=== PATIENT | female | born 1960 | race Caucasian/White ===

== ENCOUNTER 2016-11-22 09:50 | Outpatient (CLI) | payer OTHER ==
--- OUTSIDE RECORDS SUMMARY | 2016-11-22 09:52 | XMS | Clinical Summary ---
:1960 Author Organization [facility] Address [address] [place] [address] Phone Care Team Providers Name Role Phone , Primary Care Provider Unavailable Allergies Not on File Current Medications Not on file Active Problems Not on file Social History Tobacco Use Types Packs/Day Years Used Date Never Assessed Sex Assigned at Date Recorded Not on file Last Filed Vital Signs Not on file Plan of Treatment Not on file Results Not on filefrom Last 3 Months
--- NOTE | 2016-11-22 12:09 | RAD ---
THREE VIEWS LUMBOSACRAL SPINE: HISTORY: Lumbar stenosis and acute low back pain. COMPARISON: None. FINDINGS: Lateral views of the lumbosacral spine were performed in neutral, flexion, and extension. The inter vertebral disks are narrowed and vacuum phenomenon is seen at L3-L4. Small osteophytes are seen thr oughout the lumbar spine. The vertebral bodies demonstrate normal alignment without subluxation. A lignment is unchanged with flexion and extension. IMPRESSION: Degenerative changes of the lumbar spine with unchanged alignment with bending. POS: [facility]
--- NOTE | 2016-11-22 12:51 | MRI ---
MRI OF THE LUMBAR SPINE WITHOUT CONTRAST: COMPARISON: Lumbar spine radiographs 11/22/16. HISTORY: Right-sided back pain. Lumbar stenosis. Neurogenic claudication. TECHNIQUE: Multiplanar, multisequence MR images were obtained of the lumbar spine without contrast. FINDINGS: Generalized disk desiccation is seen. There intervertebral disks and narrowed at L3-4 and L5-S1. E nd plate degenerative changes are also seen at these levels. The conus medullaris terminates normally at L1-2. The prevertebral and paraspinous soft tissues are unremarkable. T12-L1: No significant posterior bulge or protrusion. No posterior facet arthrosis. No neural for aminal or central canal stenosis. L1-2: Unremarkable. L2-3: A small disk-osteophyte complex is seen. Mild bilateral posterior facet arthrosis. No centr al canal stenosis. Mild bilateral neural foraminal stenosis. L3-4: A small disk-osteophyte complex is seen. Moderate bilateral posterior facet arthrosis. Mild central canal stenosis. Moderate left and mild right neural foraminal stenosis. L4-5: A small disk-osteophyte complex is seen. Bilateral posterior facet arthrosis. No central ca nal stenosis. Mild bilateral neural foraminal stenosis. L5-S1: A small disk-osteophyte complex is seen. Mild bilateral posterior arthrosis. No central ca nal stenosis. Moderate right neural foraminal stenosis. No left neural foraminal stenosis. POS: [facility]
== END 2016-11-22 09:51 | disposition home or self-care (01) ==
LOC: TBSIIMAG 09:50
PROVIDERS: ATTEND Neurological Surgery
DX: M48.06 Spinal stenosis, lumbar region (principal); M54.5 Low back pain; M47.896 Other spondylosis, lumbar region
CPT/HCPCS: 72100; 72148

== ENCOUNTER 2017-06-13 13:23 | Emergency (ER) | payer MEDICAID, OTHER | END 2017-06-13 14:51 | disposition home or self-care (01) | LOC: ERS 13:23 | DX: I10 Essential (primary) hypertension (principal); E03.9 Hypothyroidism, unspecified; Z79.899 Other long term (current) drug therapy | CPT/HCPCS: 93005 ==